=== PATIENT | female | born 1960 | race Caucasian/White ===

== ENCOUNTER 2020-12-18 22:14 | Emergency (ER) | payer MEDICARE, OTHER ==
[2020-12-19 01:01] LABS: RED BLOOD COUNT 4.49 M/UL (4.00-5.10); WHITE BLOOD COUNT 10.1 K/UL (4.5-11.0)
[2020-12-19 01:41] LABS: BUN/CREATININE RATIO 18 (0-10)
[2020-12-19] MEDS ORDERED: ZOFRAN ODT 4 MG4 MG PO (04:06)
== END 2020-12-19 04:18 | disposition home or self-care (01) ==
LOC: ER1 22:14
PROVIDERS: Family Medicine
DX: R11.2 Nausea with vomiting, unspecified (principal); E78.5 Hyperlipidemia, unspecified; I10 Essential (primary) hypertension; Z88.2 Allergy status to sulfonamides; Z88.5 Allergy status to narcotic agent
CPT/HCPCS: 80053; 81001; 82550; 82553; 83735; 83874; 84484; 85025; 93005; 96374; 96375; 99284; J1200; J2405; J2765